=== PATIENT | female | born 1955 | race Caucasian/White ===

== ENCOUNTER 2020-06-13 09:10 | Outpatient (CLI) | payer MEDICARE, OTHER, SELFPAY | END 2020-06-13 09:11 | disposition home or self-care (01) | LOC: ANHAUDASC 09:12 | PROVIDERS: PCP Family Medicine; Visit Provider Otolaryngology | DX: H69.83 Other specified disorders of Eustachian tube, bilateral (principal); H90.3 Sensorineural hearing loss, bilateral | CPT/HCPCS: 92557; 92567 ==

== ENCOUNTER 2022-05-23 14:18 | Observation (INO) | payer MEDICARE, SELFPAY ==
[2022-05-23] VITALS (17 sets, daily range): BP systolic 110–153; BP diastolic 50–77; PULSE 65–78; RESP 13–23; TEMP 36.4–36.6; O2SAT 92–100; BMI 37.3
--- NOTE | ~2022-05-23 | CT_ITS ---
EXAMINATION: CTA BRAIN/CAROTID DATE: 05/23/2022 16:19 INDICATION: Confusion TECHNIQUE: Computed tomographic angiography (CTA) of the head and neck was performed with 100 mL Omni paque-350 intravenous contrast. Multiplanar reconstructions and maximum intensity projection 3D-recon structions of the carotid arteries and of the intracranial arteries were created by the technologist on a separate workstation. Precontrast CT of the head was also obtained. Automated exposure control and iterative reconstruction technique were employed.The dose-length product was 1170.22 mGy-cm. COMPARISON: None. FINDINGS: Carotid arteries: Aortic arch is normal in caliber with no aneurysm, dissection or atherosclerotic plaque. There is sma ll amount of atherosclerotic plaque with 0% stenosis of the right carotid bulb relative to normal dis shawn artery lumen diameter (NASCET criteria). There is no evident atherosclerotic plaque with 0% steno sis of the left carotid bulb relative to normal distal artery lumen diameter. Dual-lead cardiac pacem edi in the left pectoral region with leads extending into the superior vena cava and beyond the infe rior margin of the field of imaging. Intracranial arteries There is no hemodynamically significant stenosis in the vertebral, basilar and internal carotid arter ies. Left vertebral artery is dominant. There are no aneurysms identified. Both A1 and P1 segments a re patent. There is also a patent anterior communicating artery. Cerebral arterial arborization appea rs symmetric. No abnormally enhancing brain lesions. IMPRESSION: 1. 0% stenosis of the right carotid bulb relative to normal distal artery lumen diameter (NASCET crit eria). 2. 0% stenosis of the left carotid bulb relative to normal distal artery lumen diameter. 3. Normal cerebral CT angiogram. Reviewed, dictated and finalized at location [facility]. NTORY PLANNER IMPRESSION: 1. 0% stenosis of the right carotid bulb relative to normal distal artery lumen diameter (NASCET criteria). 2. 0% stenosis of the left carotid bulb relative to normal distal artery lumen diameter. 3. Normal cerebral CT angiogram.
--- NOTE | ~2022-05-23 | CT_ITS ---
EXAMINATION: CT brain wo con DATE: 05/23/2022 15:16 INDICATION: Confusion. Transient alteration of awareness. TECHNIQUE: Computed tomography (CT) of the head was performed without intravenous contrast. The mA wa s adjusted according to patient size. Iterative reconstruction technique was employed. Exam dose: 60 5.33 mGy-cm total exam DLP. COMPARISON: None FINDINGS: There is moderately prominent central and cortical cerebral atrophy. No intracranial mass lesion or hemorrhage or cerebrovascular accident is evident. No midline shift or mass effect. No subdural or epidural hematoma is detected. There is opacification of an ethmoid air cell on each side. The included paranasal sinuses and the ma stoid air cells are otherwise unremarkable. No fracture or bone destruction of the cranial vault. IMPRESSION: No acute intracranial finding Reviewed, dictated and finalized at [facility]. Reviewed, dictated and finalized at location [facility]. TILE SETTER
--- NOTE | 2022-05-23 14:33 | ECG_ITS ---
Measurements Intervals [place] Rate: 71 P: 96 NC: 163 QRS: 90 QRSD: 197 T: -69 QT: 458 QTc: 501 Interpretive Statements ATRIAL SENSE- ELECTRONIC VENTRICULAR PACEMAKER BASELINE ARTIFACT- I, AVL NO FURTHER INTERPRETATION IS POSSIBLE ATYPICAL ECG NO PREVIOUS ECG AVAILABLE FOR COMPARISON Electronically Signed On 05-23-2022 14:49:59 DIRECTOR PLANS by Tez Beaver D.O.
[2022-05-23 14:53] LABS: Glucose Point of Care 117 mg/dl (65-105)
[2022-05-23 14:54] LABS: Basophils Percent Auto 0.4 % (0.2-1.2); Eosinophils Absolute Auto 0.1 K/mm3 (0-0.3); Eosinophils Percent Auto 1.3 % (0-4.4); Hematocrit 39.6 % (37.0-47.0); Hemoglobin 12.5 g/dL (12.0-15.0); Immature Granulocyte Absolute 0.04 K/mm3 (0.00-0.031); Immature Granulocyte Percent A 0.4 % (0-0.5); Lymphocytes Absolute Auto 3.16 K/mm3 (0.9-3.2); Lymphocytes Percent Auto 30.2 % (18.3-44.2); Mean Corpuscular HGB Conc 31.6 g/dl (32-36); Mean Corpuscular Hemoglobin 30.9 pg (26-34); Mean Corpuscular Volume 97.8 fl (80-100); Mean Platelet Volume 9.7 fl (7.4-10.4); Monocytes Absolute Auto 0.9 K/mm3 (0.1-0.6); Monocytes Percent Auto 8.4 % (2.6-8.5); Neutrophils Absolute Auto 6.2 K/mm3 (1.3-6.7); Neutrophils Percent Auto 59.3 % (45.5-73.1); Platelet Count Result 291 k/mm3 (150-375); Red Blood Count 4.05 M/mm3 (4.2-5.4); Red Cell Distribution Width 12.7 % (11.5-14.5); White Blood Count 10.5 K/mm3 (4.5-10.0)
[2022-05-23 15:05] LABS: Alanine Aminotransferase 24 U/L (6-35); Albumin Level 4.5 g/dL (3.5-5.1); Alkaline Phosphatase 93 U/L (38-126); Anion Gap 7 mmol/L (8-16); Aspartate Amino Transferase 31 U/L (14-36); Bilirubin,Total 0.7 mg/dL (0.2-1.3); Blood Urea Nitrogen 23 mg/dL (7-17); Carbon Dioxide 26 mmol/L (22-30); Chloride 99 mmol/L (98-107); Estimated CRCL calculation 44 ml/min; Estimated Glomerular Filt Rate 45; Glucose 114 mg/dL (65-110); Potassium 3.8 mmol/L (3.4-5.0); Sodium 132 mmol/L (137-145)
--- NOTE | 2022-05-23 15:06 | ED.GENADULT ---
HPI - General Adult General Chief complaint: Neuro Symptoms/Deficit Stated complaint: uncontrolled shaking, chills and vision changes Time Seen by Provider: 05/23/22 14:47 Source: patient Limitations: no limitations History of Present Illness HPI narrative: Ciara Rutherford is a 66 y/o female who presents with reports of having an episode today at around 1345. She reports she was out for lunch with her and was sitting down eating her salad when she had a sudden onset of tremor to her right hand, she then felt like she was 'stoned', she was able to speak to her but she felt like her head and thoughts were foggy. She reports she felt very light headed and was worried she was having a stroke. Related Data Home Medications Medication Instructions Recorded Confirmed alpha lipoic acid 600 mg capsule 600 mg PO DAILY 06/06/20 atorvastatin 40 mg tablet 40 mg PO DAILY 06/06/20 azelastine 205.5 mcg (0.15 %) 205.5 mcg intranasal DAILY 06/06/20 nasal spray cholecalciferol (vitamin D3) 10 10 mcg PO DAILY 06/06/20 mcg (400 unit) capsule fluticasone propionate 50 1 spray intranasal DAILY 06/06/20 mcg/actuation nasal spray,suspension (Allergy Relief (fluticasone)) folic acid 0.8 mg capsule 0.8 mg PO DAILY 06/06/20 lactobacillus combination no.9 4 4,000 mmu cells PO DAILY 06/06/20 billion cell capsule (Adult 50 Plus Probiotic) latanoprost 0.005 % eye drops 1 drp EACH EYE DAILY 06/06/20 lisinopril 20 1 tablet PO DAILY 06/06/20 mg-hydrochlorothiazide 12.5 mg tablet memantine 28 mg capsule 28 mg PO DAILY 06/06/20 sprinkle,extended release 24hr montelukast 10 mg tablet 10 mg PO DAILY 06/06/20 multivitamin,ee-rjqq-dftsvqim 1 tablet PO DAILY 06/06/20 (Complete Multivitamin tablet) olopatadine 0.6 % nasal spray 2 spray intranasal BID 06/06/20 tolterodine 2 mg capsule,extended 2 mg PO DAILY 06/06/20 release 24 hr vit C 250 mg-vit E 200 unit-zinc cap PO 06/06/[address]-etqhkf-xkyzvh-zeax capsule (ICaps AREDS2) vitamin B complex (B 1 tablet PO DAILY 06/06/20 Complex-Vitamin B12 tablet) bupropion HCl 300 mg 24 hr tablet, 300 mg PO 05/23/22 extended release docusate sodium 100 mg tablet 200 mg PO DAILY 05/23/22 liraglutide 0.6 mg/0.1 mL (18 mg/3 1.2 mg subcut DAILY 05/23/22 mL) subcutaneous pen injector (Victoza 2-Jorge) Allergies Allergy/AdvReac Type Severity Reaction Status Date / Time Sulfa (Sulfonamide Allergy Intermediate nausea Verified 05/23/22 14:30 Antibiotics) Review of Systems Review of Systems: CONSTITUTIONAL: Denies fever, chills, or sweats. EYES: Denies visual changes, redness, or discharge. ENT: Denies rhinorrhea, congestion, sore throat, or otalgia. CARDIOVASCULAR: Denies chest pain, palpitations, or edema. RESPIRATORY: Denies cough or dyspnea. GASTROINTESTINAL: Denies abdominal pain, nausea, vomiting, or diarrhea. GENITOURINARY: Denies dysuria or hematuria. SKIN: Denies rash or itching. MUSCULOSKELETAL: Denies back pain, joint pain, or myalgia. NEUROLOGIC: Reports of feeling confused or not able to think completely clear that has improved since it started at 13:45 but she does not feel completely back to normal. PSYCHIATRIC: Denies anxiety or depression. 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
[2022-05-23] MEDS: SODIUM CHLORIDE 0.9% IV 1,000 ML 999 ML IV CONT (15:09)
[2022-05-23 15:49] LABS: INR 1.1; Prothrombin Time 13.9 Seconds (11.1-14.7)
[2022-05-23 15:51] LABS: Ethanol < 10 mg/dL (<10)
[2022-05-23 16:02] LABS: D Dimer 0.57 ug/mL (<0.48); Troponin I < 0.012 ng/mL (0.000-0.034)
[2022-05-23 16:18] LABS: Appearance Urine Clear (Clear); Bilirubin Urine Negative (Negative); Blood Urine Negative (Negative); Color Urine Yellow (Yellow); Glucose Urine UA Negative (Negative); Ketones Urine Negative (Negative); Leukocyte Esterase Ur Trace LEU/UL (Negative); Nitrate Urine Negative (Negative); Protein Urine Negative (Negative); Urobilinogen Urine 0.2 mg/dL (<2.0); pH Urine 5.5 (5.0-9.0)
[2022-05-23 16:24] LABS: Bacteria Urine Trace /hpf; RBC Urine 0-2 /hpf (0-2); WBC Urine 0-3 /hpf
[2022-05-23 16:25] LABS: Add Urine Microscopic? YES
[2022-05-23 16:30] LABS: Amphetamine Screen Urine Negative (Negative); Barbiturate Screen Urine Negative (Negative); Benzodiazepines Screen Urine Negative (Negative); Cannabinoid Screen Urine Negative (Negative); Cocaine Screen Urine Negative (Negative); Methadone Screen Urine Negative (Negative); Opiate Screen Urine Negative (Negative); Phencyclidine Screen Urine Negative (Negative)
[2022-05-23] MEDS: CLOPIDOGREL BISULFATE 75 MG TABLET PO (17:43)
[2022-05-23] MEDS: ASPIRIN 81 MG CHEWABLE TABLET PO (17:43)
--- NOTE | 2022-05-23 18:27 | PM.IMHP ---
H&P: HPI History of Present Illness Date/Time: 05/23/22 18:27 Chief Complaint: Hand tremors Narrative: This is a 66-year-old female patient who went to dinner with her today and after eating her salad, she developed hand tremors. The hand tremors were sudden. The patient stated she felt very awkward she felt as if she was stone on some type of medication. She stated she felt very foggy in her thoughts. She also felt lightheaded and was worried that she may be having a stroke. Head and neck CTA was read as the following. 0% stenosis of the right carotid bulb relative to normal distal artery lumen diameter (NASCET criteria). 2. 0% stenosis of the left carotid bulb relative to normal distal artery lumen diameter. 3. Normal cerebral CT angiogram. . Head CT was read as no acute intracranial findings. Patient is unable to receive an MRI as she has a pacemaker D-dimer is 0.57. Sodium 132. BUN 23 creatinine 1.2. She denies any nausea vomiting or diarrhea.. Her blood sugar was 114. Her drug tox screen was negative. Patient was negative for influenza A/B and COVID. The patient is being admitted to observation status on 05/23/2022 Review of Systems Review of Systems: See HPI All systems reviewed & are unremarkable except as noted in HPI and below Constitutional: Constitutional: Reports as per HPI and Reports no additional constitutional complaints Eyes: Eyes: Reports as per HPI and Reports no additional eye complaints ENT: Reports system reviewed and no additional complaints, except as documented and Reports Normal hearing present Cardiovascular: Cardiovascular: Reports no additional cardiovascular complaints Respiratory: Respiratory: Reports no additional respiratory complaints and Reports no additional respiratory complaints Gastrointestinal: Gastrointestinal: Reports as per HPI and Reports no additional gastrointestinal complaints Musculoskeletal: Musculoskeletal: Reports no additional musculoskeletal complaints Integumentary/Breasts: Skin/Breast: Reports system reviewed and no additional complaints, except as docu and Reports as per HPI Neurologic: Reports system reviewed and no additional complaints, except as documented, Reports as per HPI and Reports Normal hearing present Psychiatric: Psychiatric: Reports no additional psychiatric complaints and Reports as per HPI Endocrine: Endocrine: Reports no additional endocrine complaints Hematologic/Lymphatic: Hematologic/Lymphatic: Reports no additional hematologic/lymphatic complaints Allergic/Immunologic: Allergic/Immunologic: Reports no additional allergic/immunologic complaints [facility] Past Medical History Medical History (Updated 05/23/22 @ 20:34 by Clarissa Tena NP) Breast CA Depression Diabetes Hyperlipidemia Hypertension Memory deficit Pacemaker Tremor of both hands Surgical History Surgical History H/O mastectomy H/O partial nephrectomy Benign reasons on the left History of tonsillectomy S/P emergency Family History Family History Mother Hypertension Depression Diabetes mellitus Grandparent Alcoholism Social History Social History (Updated 05/23/22 @ 20:17 by Clarissa Tena NP) Social History: Retired director of [employer]. She lives with her . She has 1 biological child and one step child. She is a former smoker. No alcohol use. Code status full code Smoking status: Former smoker Second hand tobacco smoke exposure: No Smoking end date: 05/11/89 Alcohol intake: current Substance use: never Substance use type: does not use Meds Home Medications and Allergies Home Medications Medication Instructions Recorded Confirmed Type alpha lipoic acid 600 mg capsule 600 mg PO DAILY 06/06/20 History atorvastatin 40 mg tablet 40 mg PO DAILY 06/06/20 History azelastine
[2022-05-23 18:32] LABS: Influenza A QL RT-PCR Negative (Negative); Influenza B QL RT-PCR Negative (Negative); SARS-CoV-2 RNA PCR Negative
[2022-05-23 21:48] LABS: Glucose Point of Care 114 mg/dl (65-105)
--- NOTE | 2022-05-24 | ECHO_ITS ---
Patient Info Name: Ciara Rutherford Age: 66 years : 1955 Gender: Female Ht: 63 in Wt: 209 lbs BSA: 2.10 m2 BP: 105 / 48 mmHg Heart Rhythm: Sinus Rhythm Technical Quality: Good Exam Date: 05/24/2022 7:36 AM Exam Location: [facility] Patient Status: Inpatient Admit Date: 05/23/2022 Staff Ordering Physician: Clarissa Tena NP Workforce Development Specialist: Cinthya Levin RDCS Attending Provider: Remberto Webb MD Referring Physician: Mallika RANGEL; Exam Type: CA echo doppler color flow Study Info Indications G45.9 - Transient cerebral ischemic attack, unspecified Complete two-dimensional, color flow and Doppler transthoracic echocardiogram is performed with agitated saline. Contrast/Agitated Saline Contrast/Ag. Saline: Agitated Saline Amount: 8.00 ml Summary 1. Left ventricular chamber dimension is normal. 2. Left ventricular systolic function is normal, estimated at 60-65%. 3. The left ventricular diastolic function is normal. 4. Right ventricular chamber dimension is normal. 5. Right ventricular systolic function is normal. 6. Linear artifact in right ventricle suggestive of catheter(s), pacemaker lead(s), or ICD lead(s). 7. Linear artifact in the right atrium suggestive of catheter(s), pacemaker lead(s), or ICD lead(s). 8. Intact interatrial septum visualized by color flow and agitated saline imaging. Negative Bubble Study. 9. There is mild tricuspid valve regurgitation. Left Ventricle Left ventricular chamber dimension is normal. Left ventricular systolic function is normal, estimated at 60-65%. There is no increased left ventricular wall thickness. The left ventricular diastolic function is normal. Right Ventricle Linear artifact in right ventricle suggestive of catheter(s), pacemaker lead(s), or ICD lead(s). Right ventricular chamber dimension is normal. Right ventricular systolic function is normal. Left Atria Left atrial chamber dimension is normal. Right Atria Linear artifact in the right atrium suggestive of catheter(s), pacemaker lead(s), or ICD lead(s). Right atrial chamber dimension is normal. Atrial Septum Intact interatrial septum visualized by color flow and agitated saline imaging. Negative Bubble Study. Aortic Valve The aortic valve is probable trileaflet. There is no aortic valve stenosis. There is no aortic valve regurgitation. Pulmonic Valve The pulmonic valve is not well visualized. Mitral Valve The mitral valve has normal leaflets. There is no mitral valve stenosis. There is no mitral valve regurgitation. Tricuspid Valve There is mild tricuspid valve regurgitation. Pericardium/Pleural There is trivial pericardial effusion. Aorta The aortic root size at the sinus of Valsalva is normal. Left Ventricular Outflow Tract Name Value Normal LVOT 2D LVOT Diameter 2.0 cm LVOT Doppler LVOT Peak Gradient 3 mmHg LVOT Mean Gradient 1 mmHg LVOT VTI 23 cm LVOT VTI/AV VTI Ratio 0.6
[2022-05-24 01:00] VITALS: PULSE 63
--- NOTE | 2022-05-24 04:25 | PC.NURSE ---
Patient educated to bring in home medications in order to get a definitive medication reconciliation. Patient A&Ox4, VSS on room air.
[2022-05-24 04:39] VITALS: BP 105/48; PULSE 57; RESP 20; TEMP 36.1; O2SAT 98
[2022-05-24 06:08] LABS: Basophils Percent Auto 0.5 % (0.2-1.2); Eosinophils Absolute Auto 0.2 K/mm3 (0-0.3); Eosinophils Percent Auto 2.1 % (0-4.4); Hematocrit 36.4 % (37.0-47.0); Hemoglobin 11.4 g/dL (12.0-15.0); Immature Granulocyte Absolute 0.03 K/mm3 (0.00-0.031); Immature Granulocyte Percent A 0.4 % (0-0.5); Lymphocytes Absolute Auto 2.66 K/mm3 (0.9-3.2); Lymphocytes Percent Auto 33.5 % (18.3-44.2); Mean Corpuscular HGB Conc 31.3 g/dl (32-36); Mean Corpuscular Volume 98.9 fl (80-100); Mean Platelet Volume 10.2 fl (7.4-10.4); Monocytes Absolute Auto 0.9 K/mm3 (0.1-0.6); Monocytes Percent Auto 11.2 % (2.6-8.5); Neutrophils Absolute Auto 4.2 K/mm3 (1.3-6.7); Neutrophils Percent Auto 52.3 % (45.5-73.1); Platelet Count Result 253 k/mm3 (150-375); Red Blood Count 3.68 M/mm3 (4.2-5.4); Red Cell Distribution Width 12.9 % (11.5-14.5)
[2022-05-24 06:16] LABS: Alanine Aminotransferase 22 U/L (6-35); Albumin Level 3.9 g/dL (3.5-5.1); Alkaline Phosphatase 81 U/L (38-126); Anion Gap 6 mmol/L (8-16); Aspartate Amino Transferase 24 U/L (14-36); Bilirubin,Total 0.3 mg/dL (0.2-1.3); Blood Urea Nitrogen 20 mg/dL (7-17); Calcium 8.6 mg/dL (8.4-10.2); Carbon Dioxide 28 mmol/L (22-30); Chloride 104 mmol/L (98-107); Estimated CRCL calculation 44 ml/min; Estimated Glomerular Filt Rate 45; Glucose 111 mg/dL (65-110); Hemoglobin A1C 5.9 % (<5.7); Lipase 392 U/L (23-300); Magnesium 2.4 mg/dL (1.6-2.3); Potassium 3.7 mmol/L (3.4-5.0); Sodium 138 mmol/L (137-145)
--- NOTE | 2022-05-24 06:58 | P.PNIM_ITS ---
Progress Note: A&P Assessment and Plan (1) Tremor of both hands: Code(s): R25.1 - Tremor, unspecified Status: Acute Assessment and Plan: * Complaints of hand tremors and brain fog * Head CT No acute findings * Head CTA 0% stenosis of the right and left carotid bulbs, otherwise normal cerebral CT angiogram * Unable to get MRI related to pacemaker implant * Neurology consulted * Aspirn and atorvastatin continued * Echo ordered * Start plavix 75mg PO daily, for 4-6 weeks (2) Depression: Code(s): F32.A - Depression, unspecified Status: Acute Assessment and Plan: * Chronic and controlled * Continue with Wellbutrin * Hold Trintellix with it being non formulary (3) Hyperlipidemia: Code(s): E78.5 - Hyperlipidemia, unspecified Status: Acute Assessment and Plan: * Continue with atorvastatin * Lipid panel ordered (4) Diabetes: Code(s): E11.9 - Type 2 diabetes mellitus without complications Status: Acute Assessment and Plan: * Current glucose is 111 * A1c 5.9 * Accu-cheks AC/HS * Hypoglycemia protocol * ISS * Continue metformin, hold victoza * Trend labs * Adjust therapy as indicated (5) Hypertension: Code(s): I10 - Essential (primary) hypertension Status: Acute Assessment and Plan: * BP 105/48 * Continue lisinopril with HCTZ * Trend BP * Adjust therapy as indicated (6) Memory deficit: Code(s): R41.3 - Other amnesia Status: Acute Assessment and Plan: * Continue Namenda * Claims to not have Namenda * Stable at this time Time Spent With Patient Time with patient: Greater than 35 minutes Subjective Date/time seen: 05/24/22 06:58 Interval history: 05/24/22 05/23/22? 18:27 This is a 66-year-old female patient who went to dinner with her today and after eating her salad, she developed hand tremors.? The hand tremors were sudden.? The patient stated she felt very awkward she felt as if she was stone on some type of medication.? She stated she felt very foggy in her thoughts.? She also felt lightheaded and was worried that she may be having a stroke. Review of Systems Review of Systems: All systems reviewed & are unremarkable except as noted in HPI and below Exam Narrative: General: well-nourished, well-appearing 75-year-old female, sitting up in bed, comfortable, NARD Neuro: awake, alert and oriented x4, speech clear, no focal neuro deficits noted HEENMT: normocephalic, atraumatic, EOMI, sclerae anicteric, moist oral mucosa Respiratory: Clear to auscultation bilaterally without crackles, rhonchi or wheezes, nonlabored breathing Cardio: regular rate, regular rhythm with S1-S2 Abdomen: nondistended, normoactive bowel sounds, soft, nontender to palpation Extremities: no edema, erythema, or tenderness to palpation, DP pulses 2+ bila terally Skin: no rashes or lesions, warm and dry Psych: appropriate mood and affect, judgment and insight intact Objective Data Vital Signs Vital Signs: Vital Signs - 24 hr 05/23/22 14:21 05/23/22 14:37 05/23/22 14:33 Temperature 97.5 F L Pulse Rate 70 72 73 Respiratory Rate 1
--- NOTE | 2022-05-24 06:58 | PM.IMPN ---
Progress Note: A&P Assessment and Plan (1) Tremor of both hands: Code(s): R25.1 - Tremor, unspecified Status: Acute Assessment and Plan: Complaints of hand tremors and brain fog Head CT No acute findings Head CTA 0% stenosis of the right and left carotid bulbs, otherwise normal cerebral CT angiogram Unable to get MRI related to pacemaker implant Neurology consulted Aspirn and atorvastatin continued Echo ordered Start plavix 75mg PO daily, for 4-6 weeks (2) Depression: Code(s): F32.A - Depression, unspecified Status: Acute Assessment and Plan: Chronic and controlled Continue with Wellbutrin Hold Trintellix with it being non formulary (3) Hyperlipidemia: Code(s): E78.5 - Hyperlipidemia, unspecified Status: Acute Assessment and Plan: Continue with atorvastatin Lipid panel ordered (4) Diabetes: Code(s): E11.9 - Type 2 diabetes mellitus without complications Status: Acute Assessment and Plan: Current glucose is 111 A1c 5.9 Accu-cheks AC/HS Hypoglycemia protocol ISS Continue metformin, hold victoza Trend labs Adjust therapy as indicated (5) Hypertension: Code(s): I10 - Essential (primary) hypertension Status: Acute Assessment and Plan: BP 105/48 Continue lisinopril with HCTZ Trend BP Adjust therapy as indicated (6) Memory deficit: Code(s): R41.3 - Other amnesia Status: Acute Assessment and Plan: Continue Namenda Claims to not have Namenda Stable at this time Time Spent With Patient Time with patient: Greater than 35 minutes Subjective Date/time seen: 05/24/22 06:58 Interval history: 05/24/22 05/23/22? 18:27 This is a 66-year-old female patient who went to dinner with her today and after eating her salad, she developed hand tremors.? The hand tremors were sudden.? The patient stated she felt very awkward she felt as if she was stone on some type of medication.? She stated she felt very foggy in her thoughts.? She also felt lightheaded and was worried that she may be having a stroke. Review of Systems Review of Systems: All systems reviewed & are unremarkable except as noted in HPI and below Exam Narrative: General: well-nourished, well-appearing 75-year-old female, sitting up in bed, comfortable, NARD Neuro: awake, alert and oriented x4, speech clear, no focal neuro deficits noted HEENMT: normocephalic, atraumatic, EOMI, sclerae anicteric, moist oral mucosa Respiratory: Clear to auscultation bilaterally without crackles, rhonchi or wheezes, nonlabored breathing Cardio: regular rate, regular rhythm with S1-S2 Abdomen: nondistended, normoactive bowel sounds, soft, nontender to palpation Extremities: no edema, erythema, or tenderness to palpation, DP pulses 2+ bilaterally Skin: no rashes or lesions, warm and dry Psych: appropriate mood and affect, judgment and insight intact Objective Data Vital Signs Vital Signs: Vital Signs - 24 hr 05/23/22 14:21 05/23/22 14:37 05/23/22 14:33 Temperature 97.5 F L Pulse Rate 70 72 73 Respiratory Rate 16 23 H Blood Pressure 144/50 H Pulse Oximetry 100 99 Oxygen Delivery Room Air 05/23/22 14:34 05/23/22 15:19 05/23/22 15:30 Temperature Pulse Rate 74 70 65 Respiratory Rate 13 15 Blood Pressure 153/63 H Pulse Oximetry 99 99 99 Oxygen Delivery 05/23/22 15:51 05/23/22 16:17 05/23/22 16:23 Temperature Pulse Rate 68 72 69 Respiratory Rate 14 17 Blood Pressure 119/66 Pulse Oximetry 99 100 Oxygen Delivery 05/23/22 16:30 05/23/22 16:31 05/23/22 16:59 Temperature Pulse Rate 78 69 Respiratory Rate 22 H 20 Blood Pressure 116/77 Pulse Oximetry 96 98 92 Oxygen Delivery 05/23/22 17:00 05/23/22 17:01 05/23/22 20:12 Temperature Pulse Rate 78 66 65 Respiratory
[2022-05-24 07:36] LABS: Cholesterol 138 mg/dL (0-200); HDL Direct 48 mg/dL; Triglycerides 112 mg/dL (<150)
[2022-05-24 07:47] LABS: LDL Cholesterol Direct 59 mg/dL
[2022-05-24 08:00] VITALS: PULSE 69
[2022-05-24] MEDS: FLUTICASONE PROPIONATE 0.05% NA SPR 16 GM BTL (*BKC) 1 SPRAY NASAL (08:37)
[2022-05-24] MEDS: LATANOPROST 0.005% OP SOLN 2.5 ML BTL 1 DROP EACH EYE (08:37)
[2022-05-24] MEDS: FOLIC ACID 0.4 MG TABLET 0.8 MG PO (08:38)
[2022-05-24] MEDS: MEMANTINE HCL XR 28 MG CAP PO (08:38)
[2022-05-24] MEDS: OPTI-GEN TAB 1 TABLET PO (08:38)
[2022-05-24] MEDS: MONTELUKAST SODIUM 10 MG TABLET PO (08:38)
[2022-05-24] MEDS: lisinopriL 20 MG TABLET PO (08:39)
[2022-05-24] MEDS: ATORVASTATIN 40 MG TABLET PO (08:39)
[2022-05-24] MEDS: DOCUSATE SODIUM 100 MG CAPSULE 200 MG PO (08:39)
[2022-05-24] MEDS: VITAMIN B COMPLEX CAPSULE 1 CAP PO (08:39)
[2022-05-24] MEDS: hydroCHLOROthiazide 12.5 MG CAPSULE PO (08:39)
[2022-05-24] MEDS: buPROPion HCL XL (24 HR) 150 MG TABCR 300 MG PO (08:40)
[2022-05-24] MEDS: THERAPEUTIC MULTIVITAMINS/MINERALS TAB (*BKC) 1 TABLET PO (08:40)
[2022-05-24] MEDS: DONEPEZIL HCL 10 MG TABLET PO (08:40)
[2022-05-24] MEDS: metFORMIN HCL XR 500 MG TAB.SR.24H PO (08:40)
[2022-05-24] MEDS: CHOLECALCIFEROL 400 UNITS TABLET (VIT D) PO (08:40)
[2022-05-24] MEDS: ASPIRIN 81 MG CHEWABLE TABLET PO (08:46)
[2022-05-24] MEDS: AZELASTINE HCL NASAL 0.1% 137 MCG/SPR 30 ML BTL 1 SPRAY NASAL (08:47)
[2022-05-24 08:57] LABS: Glucose Point of Care 121 mg/dl (65-105)
--- NOTE | 2022-05-24 09:45 | PM.DS ---
DS: Admitting Diagnosis Discharge Date 05/24/22 0945 Admitting Diagnosis TIA DS: Discharge Diagnosis Discharge Diagnosis (1) Tremor of both hands: Code(s): R25.1 - Tremor, unspecified Status: Acute Assessment and Plan: Complaints of hand tremors and brain fog Head CT No acute findings Head CTA 0% stenosis of the right and left carotid bulbs, otherwise normal cerebral CT angiogram Unable to get MRI related to pacemaker implant Neurology consulted Aspirn and atorvastatin continued Echo ordered Start plavix 75mg PO daily, for 4-6 weeks (2) Depression: Code(s): F32.A - Depression, unspecified Status: Acute Assessment and Plan: Chronic and controlled Continue with Wellbutrin Hold Trintellix with it being non formulary (3) Hyperlipidemia: Code(s): E78.5 - Hyperlipidemia, unspecified Status: Acute Assessment and Plan: Continue with atorvastatin Lipid panel ordered (4) Diabetes: Code(s): E11.9 - Type 2 diabetes mellitus without complications Status: Acute Assessment and Plan: Current glucose is 111 A1c 5.9 Accu-cheks AC/HS Hypoglycemia protocol ISS Continue metformin, hold victoza Trend labs Adjust therapy as indicated (5) Hypertension: Code(s): I10 - Essential (primary) hypertension Status: Acute Assessment and Plan: BP 105/48 Continue lisinopril with HCTZ Trend BP Adjust therapy as indicated (6) Memory deficit: Code(s): R41.3 - Other amnesia Status: Acute Assessment and Plan: Continue Namenda Claims to not have Namenda Stable at this time DS: Summary Hospital Course Hospital Course: patient is a 58-year-old female with a past medical history breast cancer post mastectomy, partial nephrectomy, hypertension, hyperlipidemia who presented to the ED with complaints of worsening hand tremors and disorientation. upon arrival patient explained that she felt like she was stone or took some medications made her feel loopy. She did state that she is feeling lot better today. MRI of the brain was unable to be obtained due to patient's pacemaker. Patient did have a CT which did not show any acute abnormality and showed 0% stenosis bilaterally in the carotid bulbs. CT was also negative for any acute findings. Labs were stable. Echo was performed and showed an EF of 65% and negative bubble study. Lipid panel was stable as well. Patient stated that she feels she is back to her normal self. She currently denies any chest pain, shortness a breath, nausea, vomiting, diarrhea, constipation, weakness or fatigue. Patient does have some tremor however it is chronic for her to have some tremor. patient states that she is back to her baseline and is hopeful to go home. Patient is stable for discharge at this time. Status at Discharge Functional status at discharge: independent ambulation Overall status at discharge: patient is progressing back to baseline Time Spent with Patient Time attestation: Total time spent providing and/or coordinating discharge services:52 minutes Time spent: Greater than 30 minutes Specific discharge activities: Diagnostic testing, chart review, developing a treatment plan, education, care coordination documentation, physical exam, result review Exam Narrative: General: well-nourished, well-appearing 66-year-old female, sitting up in bed, comfortable, NARD Neuro: awake, alert and oriented x4, speech clear, no focal neuro deficits noted, slight tremor to bilateral hands. HEENMT: normocephalic, atraumatic, EOMI, sclerae anicteric, moist oral mucosa Respiratory: Clear to auscultation bilaterally without crackles, rhonchi or wheezes, nonlabored breathing left mastectomy noted. Cardio: regular rate, regular rhythm with S1-S2 Abdomen: nondistended, normoactive bowel sounds, sof
[2022-05-24 12:01] LABS: Glucose Point of Care 94 mg/dl (65-105)
--- NOTE | 2022-05-24 12:14 | PHAR ---
Home medications identified in pharmacy and returned to [facility]. Trintellix 20mg tablet daily. Anastrazole 1mg tablet daily
[2022-05-24 12:40] VITALS: PULSE 79
--- NOTE | 2022-05-24 13:49 | PC.NURSE ---
Patient took her home medication Trintellix and Anastrozole. Mau Santiago NP notified. Mediations sent to pharmacy for verification. Ordered to start tomorrow since she had them today.
== END 2022-05-24 14:30 | disposition home or self-care (01) ==
LOC: ANHED 17:46 → ANH2MED 05-24 11:59
PROVIDERS: Emergency Medicine; Nurse Practitioner; Admitting Provider Internal Medicine; Emergency Provider Nurse Practitioner Family; PCP Internal Medicine; Visit Provider Nurse Practitioner
DX: R25.1 Tremor, unspecified (principal); F32.A Depression, unspecified; E78.5 Hyperlipidemia, unspecified; E11.9 Type 2 diabetes mellitus without complications; I10 Essential (primary) hypertension; R41.3 Other amnesia; I07.1 Rheumatic tricuspid insufficiency; R42 Dizziness and giddiness; F10.90 Alcohol use, unspecified, uncomplicated; Y90.0 Blood alcohol level of less than 20 mg/100 ml; Z95.0 Presence of cardiac pacemaker; Z20.822 Contact with and (suspected) exposure to COVID-19; Z87.891 Personal history of nicotine dependence; Z79.51 Long term (current) use of inhaled steroids; Z79.85 Long-term (current) use of injectable non-insulin antidiabetic drugs; Z79.899 Other long term (current) drug therapy; Z82.49 Family history of ischemic heart disease and other diseases of the circulatory system; Z83.3 Family history of diabetes mellitus; Z84.89 Family history of other specified conditions
CPT/HCPCS: 36415; 70450; 70496; 70498; 80053; 80061; 80307; 81001; 82948; 83036; 83690; 83735; 84443; 84484; 85025; 85380; 85610; 87636; 93005; 93306; 96360; 96375; 99285; A9270; G0378; J7030; Q9967

== ENCOUNTER 2022-06-20 08:28 | Outpatient (CLI) | payer MEDICARE, SELFPAY ==
--- NOTE | 2022-06-20 14:01 | WPDNEUROLOGY ---
Neurology EEG Report General Information Date of Study: 06/20/22 TEST EEG DIAGNOSIS transient cerebral ischemic attack CONDITION OF RECORDING drowsy and sleep EEG NUMBER [id number] CLINICAL HISTORY patient reports she had an episode right upper extremity uncontrollable twitching that lasted for less than a minute EEG DESCRIPTION background rhythm consists of medium voltage 5 to 7 hertz per 2nd theta activity. Bilateral symmetrical sleep activity seen during sleep. Hyperventilation not done. Photic stimulation produced normal and symmetrical buildup. Non paroxysmal. Nonfocal. Nonlateralizing. IMPRESSION no significant abnormalities noted during drowsiness and sleep but considering the excessive amount of theta activity repeat EEG suggested at a later date to make sure the bihemispheric slow activity is gone
== END 2022-06-20 08:29 | disposition home or self-care (01) ==
PROVIDERS: PCP Internal Medicine; Visit Provider Psychiatry & Neurology Neurology
DX: G45.9 Transient cerebral ischemic attack, unspecified (principal)
CPT/HCPCS: 95816